=== PATIENT | female | born 1955 | race Caucasian/White ===

== ENCOUNTER → 2016-07-26 | Outpatient (CLI) | payer OTHER ==
[2016-07-26 08:18] LABS: BASOPHILS % (AUTO) 0 % (0-2); EOSINOPHILS # (AUTO) 0.1 10^3uL; EOSINOPHILS % (AUTO) 2 % (0-4); LYMPHOCYTES # (AUTO) 1.3 X10^3; MEAN CORPUSCULAR HEMOGLOBIN 28.5 PG (26.0-34.0); MEAN CORPUSCULAR HGB CONC 33.7 g/dL (31.0-37.0); MEAN CORPUSCULAR VOLUME 85 FL (80-100); MEAN PLATELET VOLUME 10.5 FL (6.0-9.5); MONOCYTES # (AUTO) 0.6 X10^3; MONOCYTES % (AUTO) 11 % (3-11); NEUTROPHILS % (AUTO) 60 % (51-67); PLATELET COUNT 193 10^3uL (150-450); WHITE BLOOD COUNT 5.05 10^3uL (4.0-11.0)
[2016-07-26 08:29] LABS: BILIRUBIN,URINE Negative (Negative); CLARITY,URINE Clear; COLOR,URINE Yellow; GLUCOSE, URINE (UA) Negative (Negative); LEUKOCYTE ESTERASE ,URINE 1+ (Negative); PH,URINE 5.5 (5.0 - 8.0); UROBILINOGEN,URINE 0.2 mg/dL (0.2-1.0)
[2016-07-26 08:31] LABS: ALBUMIN 4.2 g/dL (3.4-5.0); ANION GAP 14.2 MEQ/L (3-15); CALCULATED IONIZED CALCIUM 5.3 mg/dL (3.8-4.6); TOTAL PROTEIN 7.1 g/dL (6.4-8.5)
[2016-07-26 09:27] LABS: RBC,URINE 0-2 /HPF; URINE CENTRIFUGED VOLUME 10 mL
== END ==
LOC: LAB 07:46
PROVIDERS: ATTEND Family Medicine
DX: Z00.00 Encounter for general adult medical examination without abnormal findings (principal); E03.8 Other specified hypothyroidism; E55.9 Vitamin D deficiency, unspecified; E21.2 Other hyperparathyroidism
CPT/HCPCS: 36415; 80053; 80061; 81003; 81015; 82306; 83970; 84443; 85025; 87088

== ENCOUNTER → 2016-08-01 | Outpatient (CLI) | payer OTHER | LOC: RAD 07:32 | PROVIDERS: ATTEND Family Medicine | DX: Z12.31 Encounter for screening mammogram for malignant neoplasm of breast (principal); E21.2 Other hyperparathyroidism; E03.8 Other specified hypothyroidism | CPT/HCPCS: 78070; A9500; G0202 ==

== ENCOUNTER → 2016-08-12 | Outpatient (CLI) | payer OTHER ==
[2016-08-12 18:17] LABS: CALCIUM URINE MG/DL 8.3 mg/dL
== END ==
LOC: LAB 07:52
PROVIDERS: ATTEND Family Medicine
DX: E83.52 Hypercalcemia (principal)
CPT/HCPCS: 36415; 81050; 82340